=== PATIENT | male | born 1930 | race Caucasian/White ===

== ENCOUNTER 2018-05-20 13:51 | Observation (INO) | payer MEDICARE, MEDICAID ==
[2018-05-20] MEDS ORDERED: Acetaminophen TAB* 325 MG PO ONE (14:04)
--- NOTE | 2018-05-20 14:23 | ED ---
Adult Trauma - HPI Summary HPI Summary: Patient is an 87-year-old male with a history of hypertension presenting to the ED after a fall. is at bedside. states they were attempting to move a mattress, when he fell, falling onto his left shoulder and injuring his left hip and also with a head injury. Patient endorses pain to the L eyebrow with a small laceration. Also pain to the L elbow and L hip. Patient is s/p L hip replacement. Hx of dementia but states he appears at his baseline. He is A and O x 3 on arrival, joking and appears well. Denies SOB or CP. Patient was not ambulatory s/p fall as his called ambulance. He states he feels as though he could walk though. - History of Current Complaint Stated Complaint: FALL/HEAD INJURY Time Seen by Provider: 05/20/18 13:59 Hx Obtained From: Patient Mechanism of Injury: Fall Ambulatory at the Scene: Yes Loss of Consciousness: no loss of consciousness Onset of Pain: Minutes Onset Severity: Mild Current Severity: Mild Pain Scale Used: 0-10 Numeric Location: Extremities - left hip, left shoulder Character: Aching Aggravating Factor(s): Movement Alleviating Factor(s): Rest, Ice, Compression Associated Signs & Symptoms: Positive: Other: - demented at baseline. Negative : SOB, Chest Pain, Cough, Nausea/Vomiting, Loss of Consciousness, Memory Loss, Numbness/Weakness, Hoarseness - Additional Pertinent History Oxygen Devices Used Prior to Hospitalization: None Recent Stress Test: No Have you ever had this problem before: No - Allergy/Home Medications Allergies/Adverse Reactions: Allergies Allergy/AdvReac Type Severity Reaction Status Date / Time MS Rofecoxib [From Vioxx] Allergy Severe blood in Verified 08/29/12 11:31 stool seafood Allergy unknown Uncoded 08/29/12 11:31 reaction, PMH/Surg Hx/FS Hx/Imm Hx Previously Healthy: No - dementia but otherwise has been healthy Cardiovascular History: Reports: Hx Hypertension - WILL NOT TAKEN MEDICATION GI History: Reports: Hx Gastroesophageal Reflux Disease - ON MEDICATION STOPPED 08/21 History: Reports: Other Problems/Disorders - HEMATURIA WITH GROWTH IN BLADDER Sensory History: Reports: Hx Contacts or Glasses - GLASSES, Hx Glaucoma - RIGHT EYE Denies: Hx Hearing Aid Opthamlomology History: Reports: Hx Contacts or Glasses - GLASSES, Hx Glaucoma - RIGHT EYE Neurological History: Reports: Hx Dementia - alzheimers, Other Neuro Impairments /Disorders - ALZHEIMERS - Surgical History Surgery Procedure, Year, and Place: RIGHT HIP REPLACEMENT, [facility]. INCISION AND DRAINAGE RIGHT TESTICLE, OFFICE IN [place]. RIGHT VARICOSE VEIN SURGERY, [facility] Hx Anesthesia Reactions: No - Immunization History Hx Pertussis Vaccination: No Immunizations Up to Date: Yes Infectious Disease History: Denies: Traveled Outside the [place] in Last 30 Days - Social History Occupation: Unemployed Lives: With Family Hx Substance Use: No Substance Use Type: Reports: None Hx Tobacco Use: No Smoking Status (MU): Never Smoked Tobacco Review of Systems Constitutional: Negative Negative: Fever, Chills, Fatigue, Skin Diaphoresis Negative: Palpitations, Chest Pain Negative: Shortness Of Breath, Cough Negative: Abdominal Pain, Vomiting, Diarrhea, Nausea Genitourinary: Negative Positive: no symptoms reported, see HPI Positive: Arthralgia - left hip, left shoulder, Myalgia Positive: Other - hematoma to the L eyebrow Negative: Headache, Weakness, Paresthesia, Numbness, Syncope Psychological: Normal All Other Systems Reviewed And Are Negative: Yes Physical Exam Triage Information Reviewed: Yes Vital Signs Reviewed: Yes Appearance: Positive: No Pain Distress, Signs of Trauma Skin: Positive: Pale Head/Face: Positive: Cephalohematoma - left eyebrow Eyes: Positive: EOMI, TANYA, Conjunctiva Inflammed Neck: Positive: Supple, No Lymphadenopathy Respiratory/Lung Sounds: Positive: Clear to Auscultation, Breath Sounds Present Cardiovascular: Positive: Normal, RRR, Pulses are Symmetrical in both Upper and Lower Extremities Musculoskeletal: Positive: Pain @ - left hip on log roll only, Other - left shoulder - able to abduct and adduct without discomfort Neurological: Positive: Speech Normal Psychiatric: Positive: Affect/Mood Appropriate, Other - patient is demented at baseline - able to answer questions appropriately AVPU Assessment: Alert - Halie Coma Scale Best Eye Response: 4 - Spontaneous Best Motor Response: 6 - Obeys Commands Best Verbal Response: 5 - Oriented Coma Scale Total: 15 Diagnostics - Laboratory Result Diagrams: 05/20/18 14:39 05/20/18 14:39 Lab Statement: Any lab studies that have been ordered have been reviewed, and results considered in the medical decision making process. Adult Trauma Course/Dx - Course Course Of Treatment: On arrival into the ED, patient is noted to have trauma to the left eyebrow. There is a large hematoma with overlying laceration measuring 3 cm in length. He is also complaining of left shoulder pain. There is a large hematoma to the left shoulder, however patient is able to abduct and adduct at the shoulder. He is complaining of left hip pain. Patient is status post left hip replacement several years ago. He denies any SOB or CP. He was shown to be in A. fib on arrival, however a closer look revealed this was sinus arrhythmia. He was placed on the monitor and it showed continuous sinus rhythm without evidence of A. fib. On arrival to the ED, he was immediately sent to the CT brain which was read as: Left hip and pelvis x-ray shows: IMPRESSION: 1. STATUS POST RIGHT HIP ARTHROPLASTY. 2. OSTEOARTHRITIS. 3. OSTEOPENIA. 4. NO RADIOGRAPHIC EVIDENCE FOR HIP FRACTURE. X-RAYS MAY BE NEGATIVE WITH NONDISPLACED. HIP FRACTURE, IF THERE IS PERSISTENT CLINICAL CONCERN, RECOMMEND CONSIDERATION OF MRI. IN. THE SETTING OF CONTRAINDICATION TO MRI OR LIMITATION IN EMERGENT ACCESS TO MRI, CT WOULD. BE SUGGESTED. Chest x-ray shows: IMPRESSION: NO ACTIVE CARDIOPULMONARY DISEASE. Left shoulder x-ray shows: IMPRESSION: OSTEOPENIA. OSTEOARTHRITIS. NO ACUTE OSSEOUS INJURY. THE DEGREE OF OSTEOPENIA MAY MAKE A NONDISPLACED FRACTURE. RADIOGRAPHICALLY OCCULT. IF SYMPTOMS PERSIST, RECOMMEND REPEAT IMAGING. Patient is given Tylenol 650 mg PO for relief. Labs obtained: Hemoglobin 13.5, WBC 5.4, BUN 38, creatinine 1.18 troponin 0.00. EKG shows sinus bradycardia with a rate of 46. Log rolled patient and he c/o pain to the bilateral hips. This is worse to the L side. On this reevaluation, patient states he is feeling improved and would like to ambulate. He does ambulate and bears weight on both legs, although states he has pain to the bilateral hips (both to the lateral aspects). Upon ambulation, heart rate drops to 40 and patient appears to be vasovagal. We sit him down and BP is noted to be 79/55. Fluids with pressure bag 2 given and BP increases to 88/65 after 5 minutes. IMPRESSION: 1. OSTEOPENIA. 2. OSTEOARTHRITIS. 3. NO DISPLACED FRACTURE. 4. STATUS POST RIGHT HIP ARTHROPLASTY. 5. PERIVESICULAR HEMATOMA MEASURING UP TO 12 CM IN SIZE. PRELIMINARY FINDINGS WERE DISCUSSED WITH OSCAR DEUTSCH IN THE EMERGENCY DEPARTMENT AT. APPROXIMATELY 4:20 PM ON MAY 20, 2018.. Furhter re- examination reveals no tenderness suprapubically or to the R or L groin. Only pain noted to the L lateral hip on palpation. Discussed case with Dr. Kwong who agrees to admit for further workup. - Diagnoses Differential Diagnosis/HQI/PQRI: Positive: Contusion(s) Provider Diagnoses: Traumatic cephalohematoma, Left hip pain, Bradycardia, Abdominal hematoma Discharge - Sign-Out/Discharge Documenting (check all that apply): Patient Departure Patient Received Moderate/Deep Sedation with Procedure: No - Discharge Plan Condition: Fair Disposition: ADMITTED TO [facility] Patient Education Materials: Head Injury (ED) Referrals: Chuy Peter MD [Primary Care Provider] - Additional Instructions: antibiotic ointment to the area Return to the ED for any worsening symptoms - Billing Disposition and Condition Condition: FAIR Disposition: Admitted to [facility]
[2018-05-20 14:56] LABS: ABS Basophils 0 10^3/ul (0-0.2); ABS Eosinophils 0.1 10^3/ul (0-0.6); ABS Lymphocytes 0.9 10^3/ul (1.0-4.8); ABS Monocytes 0.5 10^3/ul (0-0.8); ABS Nucleated RBC 0 10^3/ul; Eosinophil % 1.1 %; Hematocrit 40 % (36-46); Hemoglobin 13.5 g/dL (14.0-18.0); Lymphocyte % 15.8 %; Mean Corpuscular HGB Conc 34 g/dL (31-36); Mean Corpuscular Hemoglobin 32 pg (27-31); Mean Corpuscular Volume 97 fL (80-94); Mean Platelet Volume 8.8 fL (7.4-10.4); Nucleated Red Blood Cells % 0.1; Platelet Count 184 10^3/uL (150-450); Red Blood Count 4.18 10^6 /uL (4.18-5.48); Red Cell Distribution Width 14 % (10.5-15); White Blood Count 5.4 10^3/uL (3.5-10.8)
[2018-05-20 15:20] LABS: Albumin 4.2 g/dL (3.2-5.2); Albumin/Globulin Ratio 1.4 (1-3); BUN/Creatinine Ratio 32.2 (8-20); Calcium 9.7 mg/dL (8.6-10.3); EGFR African American 70.3 (>60); EGFR Non-African American 58.1 (>60); Globulin 2.9 g/dL (2-4); Potassium 4.6 mmol/L (3.5-5.0); Total Bilirubin 0.6 mg/dL (0.2-1.0); Total Protein 7.1 g/dL (6.4-8.9)
[2018-05-20] MEDS ORDERED: NS 0.9% 1000 ML** 1,000 ML IV ONE (16:00)
[2018-05-20] MEDS ORDERED: Acetaminophen TAB* 325 MG PO PRN (16:57)
[2018-05-20] MEDS ORDERED: traMADol TAB* 50 MG PO PRN (16:58)
[2018-05-20 17:22] LABS: Hematocrit 22 % (36-46); Hemoglobin 7.4 g/dL (14.0-18.0); Mean Corpuscular HGB Conc 34 g/dL (31-36); Mean Corpuscular Hemoglobin 34 pg (27-31); Mean Corpuscular Volume 99 fL (80-94); Red Blood Count 2.19 10^6 /uL (4.18-5.48); Red Cell Distribution Width 14 % (10.5-15); White Blood Count 5.7 10^3/uL (3.5-10.8)
[2018-05-20 18:37] LABS: Mean Platelet Volume 8.8 fL (7.4-10.4); Platelet Count 95 10^3/uL (150-450)
[2018-05-20 18:47] LABS: Hematocrit 34 % (36-46); Hemoglobin 11.6 g/dL (14.0-18.0)
[2018-05-20] MEDS ORDERED: Iodixanol* (CONTRAST) 320 MG/ML 100 ML SDV IV ONE (19:11)
--- NOTE | 2018-05-20 19:16 | ED ---
Progress - Progress Note Progress Note: I supervised the care of the physician pediatric medical assistant and I performed a history and physical on this patient. Street: Fall with facial injury and discomfort in the hip. Near syncopal episode in the ER Physical exam: Alert, oriented with hematoma surrounding the left eye. Tender in the suprapubic area with a firm/density felt. Plan: Re-CT with IV contrast of the abdomen and pelvis to establish if the hematoma is enlarging and to evaluate for possible source of the bleeding. Patient signed out to oncoming ER physician pending results of the CT with contrast. Hemoglobin had dropped 6 g on second draw however this was drawn above an IV line. This was repeated and hemoglobin was now on 11.5 range, a much less significant drop. Patient is no longer hypotensive and is comfortable.. Course/Dx - Course Course Of Treatment: On arrival into the ED, patient is noted to have trauma to the left eyebrow. There is a large hematoma with overlying laceration measuring 3 cm in length. He is also complaining of left shoulder pain. There is a large hematoma to the left shoulder, however patient is able to abduct and adduct at the shoulder. He is complaining of left hip pain. Patient is status post left hip replacement several years ago. He denies any SOB or CP. He was shown to be in A. fib on arrival, however a closer look revealed this was sinus arrhythmia. He was placed on the monitor and it showed continuous sinus rhythm without evidence of A. fib. On arrival to the ED, he was immediately sent to the CT brain which was read as: Left hip and pelvis x-ray shows: IMPRESSION: 1. STATUS POST RIGHT HIP ARTHROPLASTY. 2. OSTEOARTHRITIS. 3. OSTEOPENIA. 4. NO RADIOGRAPHIC EVIDENCE FOR HIP FRACTURE. X-RAYS MAY BE NEGATIVE WITH NONDISPLACED. HIP FRACTURE, IF THERE IS PERSISTENT CLINICAL CONCERN, RECOMMEND CONSIDERATION OF MRI. IN. THE SETTING OF CONTRAINDICATION TO MRI OR LIMITATION IN EMERGENT ACCESS TO MRI, CT WOULD. BE SUGGESTED. Chest x-ray shows: IMPRESSION: NO ACTIVE CARDIOPULMONARY DISEASE. Left shoulder x-ray shows: IMPRESSION: OSTEOPENIA. OSTEOARTHRITIS. NO ACUTE OSSEOUS INJURY. THE DEGREE OF OSTEOPENIA MAY MAKE A NONDISPLACED FRACTURE. RADIOGRAPHICALLY OCCULT. IF SYMPTOMS PERSIST, RECOMMEND REPEAT IMAGING. Patient is given Tylenol 650 mg PO for relief. Labs obtained: Hemoglobin 13.5, WBC 5.4, BUN 38, creatinine 1.18 troponin 0.00. EKG shows sinus bradycardia with a rate of 46. Log rolled patient and he c/o pain to the bilateral hips. This is worse to the L side. On this reevaluation, patient states he is feeling improved and would like to ambulate. He does ambulate and bears weight on both legs, although states he has pain to the bilateral hips (both to the lateral aspects). Upon ambulation, heart rate drops to 40 and patient appears to be vasovagal. We sit him down and BP is noted to be 79/55. Fluids with pressure bag 2 given and BP increases to 88/65 after 5 minutes. IMPRESSION: 1. OSTEOPENIA. 2. OSTEOARTHRITIS. 3. NO DISPLACED FRACTURE. 4. STATUS POST RIGHT HIP ARTHROPLASTY. 5. PERIVESICULAR HEMATOMA MEASURING UP TO 12 CM IN SIZE. PRELIMINARY FINDINGS WERE DISCUSSED WITH OSCAR DEUTSCH IN THE EMERGENCY DEPARTMENT AT. APPROXIMATELY 4:20 PM ON MAY 20, 2018.. Furhter re- examination reveals no tenderness suprapubically or to the R or L groin. Only pain noted to the L lateral hip on palpation. Discussed case with Dr. Kwong who agrees to admit for further workup. - Diagnoses Provider Diagnoses: Traumatic cephalohematoma, Left hip pain, Bradycardia, Abdominal hematoma Discharge - Sign-Out/Discharge Documenting (check all that apply): Sign-Out Patient Signing out patient TO: Janie Lunsford - Discharge Plan Condition: Guarded Disposition: ADMITTED TO [facility] - Billing Disposition and Condition Condition: GUARDED Disposition: Admitted to [facility] - Attestation Statements Document Initiated by Jerry: No
--- NOTE | 2018-05-20 19:48 | ED ---
Progress - Progress Note Progress Note: Patient was signed out from Dr. Parker upon shift change pending CT results and disposition. DIAG CT abdomen and pelvis reveals, per radiologist, 1. No significant change in size of extraperitoneal hematoma of the ventral pelvis and lower abdomen which measures a maximum of 14.1 x 12.1 x 7.4 cm with no IV contrast extravasation/ active arterial bleeding. 2. Delayed imaging was only performed in the abdomen and not through the pelvis and therefore cannot evaluate for extraperitoneal urinary bladder rupture. 3. There is a small hiatal hernia. 4. There is colonic diverticulosis without evidence for acute diverticulitis. ED physician has reviewed this radiology report. Re-Evaluation - Re-Evaluation First Eval Re-Evaluation Time: 20:35 Change: Unchanged Comment: Batres catheter was placed. Urine was clear. Course/Dx - Course Course Of Treatment: On arrival into the ED, patient is noted to have trauma to the left eyebrow. There is a large hematoma with overlying laceration measuring 3 cm in length. On arrival to the ED, he was immediately sent to the CT brain which was read as: Left hip and pelvis x-ray shows: IMPRESSION: 1. STATUS POST RIGHT HIP ARTHROPLASTY. 2. OSTEOARTHRITIS. 3. OSTEOPENIA. 4. NO RADIOGRAPHIC EVIDENCE FOR HIP FRACTURE. X-RAYS MAY BE NEGATIVE WITH NONDISPLACED. HIP FRACTURE, IF THERE IS PERSISTENT CLINICAL CONCERN, RECOMMEND CONSIDERATION OF MRI. IN THE SETTING OF CONTRAINDICATION TO MRI OR LIMITATION IN EMERGENT ACCESS TO MRI, CT WOULD BE SUGGESTED. Chest x-ray shows: IMPRESSION : NO ACTIVE CARDIOPULMONARY DISEASE. Left shoulder x-ray shows: IMPRESSION: OSTEOPENIA. OSTEOARTHRITIS. NO ACUTE OSSEOUS INJURY. THE DEGREE OF OSTEOPENIA MAY MAKE A NONDISPLACED FRACTURE. RADIOGRAPHICALLY OCCULT. IF SYMPTOMS PERSIST , RECOMMEND REPEAT IMAGING. Patient is given Tylenol 650 mg PO for relief. Labs obtained: Hemoglobin 13.5, WBC 5.4, BUN 38, creatinine 1.18 troponin 0.00. EKG shows sinus bradycardia with a rate of 46. Log rolled patient and he c/o pain to the bilateral hips. This is worse to the L side. On this reevaluation, patient states he is feeling improved and would like to ambulate. He does ambulate and bears weight on both legs, although states he has pain to the bilateral hips (both to the lateral aspects). Upon ambulation, heart rate drops to 40 and patient appears to be vasovagal. We sit him down and BP is noted to be 79/55. Fluids with pressure bag 2 given and BP increases to 88/ 65 after 5 minutes. IMPRESSION: 1. OSTEOPENIA. 2. OSTEOARTHRITIS. 3. NO DISPLACED FRACTURE. 4. STATUS POST RIGHT HIP ARTHROPLASTY. 5. PERIVESICULAR HEMATOMA MEASURING UP TO 12 CM IN SIZE. PRELIMINARY FINDINGS WERE DISCUSSED WITH OSCAR DEUTSCH IN THE EMERGENCY DEPARTMENT AT. APPROXIMATELY 4:20 PM ON MAY 20, 2018.. Furhter re-examination reveals no tenderness suprapubically or to the R or L groin. Only pain noted to the L lateral hip on palpation. Patient was signed out from Dr. Parker upon shift change pending CT results and disposition. CT abdomen and pelvis reveals, per radiologist, 1. No significant change in size of extraperitoneal hematoma of the ventral pelvis and lower abdomen which measures a maximum of 14.1 x 12.1 x 7.4 cm with no IV contrast extravasation/active arterial bleeding. 2. Delayed imaging was only performed in the abdomen and not through the pelvis and therefore cannot evaluate for extraperitoneal urinary bladder rupture. 3. There is a small hiatal hernia. 4. There is colonic diverticulosis without evidence for acute diverticulitis. ED physician has reviewed this radiology report. Consult with Dr. Hill (hospitalist) at 2014. She requested that the patient receive a Batres catheter. She communicated if the urine is clear, we will admit the patient. Batres catheter was placed. Urine was clear. Patient will be admitted by Dr. Hill. Patient is agreeable with this plan. - Diagnoses Provider Diagnoses: Traumatic cephalohematoma, Left hip pain, Bradycardia, Abdominal hematoma - Provider Notifications Discussed Care Of Patient With: Sugey Hill Time Discussed With Above Provider: 20:15 Instructed by Provider To: Other - Consult with Dr. Hill (hospitalist) at 2014. She requested that the patient receive a Batres catheter. She communicated if the urine is clear, we will admit the patient. Discharge - Sign-Out/Discharge Documenting (check all that apply): Patient Departure - Admit to [facility], Receiving Sign-Out Receiving patient FROM: Oli Parker - Upon shift change pending CT results and disposition Patient Received Moderate/Deep Sedation with Procedure: No - Discharge Plan Condition: Guarded Disposition: ADMITTED TO [facility] - Attestation Statements Document Initiated by Scribe: Yes Documenting Scribe: Nuha Mancia Provider For Whom Scribe is Documenting (Include Credential): Dr. Janie Lunsford MD Scribe Attestation: I, Nuha Mancia, scribed for Dr. Janie Lunsford MD on 05/20/18 at 2035. Status of Scribe Document: Ready
[2018-05-20 20:44] LABS: Urine Appearance Clear; Urine Bilirubin Negative (Negative); Urine Blood Negative (Negative); Urine Color Yellow; Urine Glucose Negative (Negative); Urine Ketones 1+ (Negative); Urine Nitrite Negative (Negative); Urine Protein Negative (Negative); Urine Specific Gravity 1.038 (1.010-1.030); Urine Urobilinogen Negative (Negative)
--- NOTE | 2018-05-20 20:47 | HP ---
HISTORY AND PHYSICAL: DATE OF ADMISSION: 05/20/18 PRIMARY CARE PROVIDER: Dr. Chuy Peter. INSPECTOR EYEGLASS FRAMES: Patient's , Haylie Gamez. CODE STATUS: DNR. CHIEF COMPLAINT: Mechanical fall. SOURCE OF INFORMATION: HPI is obtained from family, review of records as the patient is a poor historian at baseline. HISTORY OF PRESENT ILLNESS: 87-year-old male with a past medical history of hypertension, Alzheimer dementia, gout, hyperlipidemia, and distant history of bladder cancer who presented to the emergency room after a mechanical fall. The patient and his were moving a mattress this morning, and when they were attempting to turn the mattress, the patient tripped on his left foot and came down landing on his left hip and then left shoulder and then ultimately did strike his head and had no loss of consciousness. He had immediate bruising and bleeding, and thus, they decided to present to the emergency room. In the emergency room, vital signs were initially stable, 110/51 with heart rates in the 60s and respiratory rates in the 20s, afebrile, and satting 96% on room air. The patient had labs done that showed hemoglobin of 13.5 and hematocrit of 40. CMP was done which was remarkable only for creatinine of 1.18. INR was 1. Imaging was done including a head CT which showed no acute intracranial pathology; a chest x-ray which showed no active cardiopulmonary disease; a hip and pelvis x-ray which showed status post right hip arthroplasty , osteoarthritis, osteopenia, and no radiographic evidence for hip fracture. A shoulder x-ray was done which showed no acute osseous injury, and finally, a pelvis CT was done as the patient continued to have complaint of pain which showed a perivesicular hematoma measuring 12 cm in size. Furthermore, over the course of his ER course, while the patient initially was doing well and actually was slated possibly even for discharge, he stood up and acutely vasovagal, then dropped his blood pressure to 80/50, became very pale, and had bradycardia into the 50s and needed to receive a 1 L bolus. Because the patient lives at home with his and because he was acutely decompensating with a syncopal event as well as had concern for a new hematoma, the hospitalist team was asked to evaluate the patient for further monitoring and admission to the hospital. PAST MEDICAL HISTORY: 1. Hypertension. 2. Alzheimer dementia, he is oriented to himself at baseline. 3. Hyperlipidemia. 4. Gout. 5. Distant history of bladder cancer. PAST SURGICAL HISTORY: He has a right total hip replacement, and otherwise, his family was unsure. MEDICATIONS: His medications are: 1. Naproxen 500 mg 1 tablet by mouth b.i.d. for pain. 2. Donepezil 10 mg q.h.s. 3. Latanoprost 1 drop both eyes nightly. 4. Cosopt 1 drop twice a day to right eye only. ALLERGIES: To crab, fish, gallops, and some NSAIDS including the COXIB class. FAMILY HISTORY: Noncontributory. SOCIAL HISTORY: He lives with his who is his primary resident care coordinator. Tobacco : he is a former smoker with a 8-pack year history. Alcohol:he is a non- alcohol user. Illicits:he is a no illicits user. REVIEW OF SYSTEMS: The patient is a poor historian at baseline and cannot fully complete a review of systems. He denies fevers, chills. Roughly, he denies any complaints of vision. He does endorse a headache. He denies chest pain. He denies shortness of breath. He denies nausea, vomiting, diarrhea. : He denies any dysuria. Musculoskeletal: He does admit left hip and right hip pain as well as left shoulder pain and does endorse new weakness. Skin: He has no complaints of rashes or new lesions. Neurologic: He denies no new numbness. Psychiatric: Denies depression or anxiety. Heme: He does complain of bruising which is on his left shoulder and left hip. PHYSICAL EXAMINATION GENERAL APPEARANCE: The patient is a pleasant man who is oriented to himself at baseline and repeating himself frequently, complaining in pain. VITAL SIGNS: At the time of physical exam are 110/51, heart rate of 60, respiratory rate of 22, saturating 99% on room air. HEENT: He is normocephalic. He does have a hematoma on his left brow extending to left eyelid, but sclerae are white and extraocular movements are intact. Pupils are equal and reactive. NECK: Supple with no cervical lymphadenopathy. RESPIRATORY: Clear to auscultation bilaterally. CARDIAC: He has regular rate and rhythm with no murmurs, rubs, or gallops. ABDOMEN: Belly is soft, nontender, and nondistended. MUSCULOSKELETAL: He moves all 4 extremities spontaneously. He has limited range of motion in bilateral hip flexion and extension secondary to pain. His left arm also has mild pain on painful arc testing, but otherwise no limitations on passive range of motion. NEUROLOGIC: Cranial nerves II through XII are intact with no focal deficits. Again, he is oriented to himself at baseline and often repeats himself. SKIN: He has diffuse hematoma on left shoulder anteriorly and posteriorly. He also has evidence of early left hematoma on left hip and flank. He also has evidence of hematoma on left eye. DIAGNOSTIC STUDIES/LAB DATA: CBC initially showed a white blood cell count of 5.4, hemoglobin of 13.5, hematocrit of 40, platelets of 184. A repeat CBC was done after a perivesicular hematoma was noted on pelvis CT which showed a hemoglobin of 7.4 and hematocrit of 22. CMP was done which showed sodium of 136, potassium 4.6, chloride 104, carbon dioxide 27, BUN 38, creatinine 1.18, glucose 101. AST 24, ALT 19, alk phos 66. His troponin is 0. Imaging: The pelvic CT showed a right perivesicular hematoma to 12 cm, but no evidence of pelvic fracture. A shoulder x-ray showed no acute osseous injury, and pelvis x-ray showed no acute osseous injury, but is status post right total hip replacement. Chest x-ray showed no active cardiopulmonary disease. A brain CT showed no acute intracranial pathology. An EKG was done which showed sinus bradycardia with no evidence of acute ischemia. Imaging and EKG reviewed by myself. ASSESSMENT AND PLAN: This is an 87-year-old male with dementia, hypertension, hyperlipidemia, and gout who presented to the emergency room status post a mechanical fall and emergency room course was complicated by syncopal event and persistent pelvic pain in the setting of new perivesicular hematoma 1. Internal Hematoma -The patient had a hemoglobin drop from 13.5 to 11 in 6 hours and a new 12 cm perivesicular hematoma. Curbside consult to ortho recommends if H/H continues to drift down may need angiogram. Will plan for expectant conservative management with serial H/H. 2. Status post mechanical fall. -He has no evidence of hip fracture but does have significant hematoma to left outer hip, right perivesicular, left shoulder, and left eye. -He is status post laceration management in the emergency room. -We will continue with pain control. 3. Hypertension. We will hold antihypertensives in the setting of syncopal event. 4. Vasovagal event. This is secondary to acute blood loss anemia and pain. We will continue to monitor the patient on tele overnight, has known sinus bradycardia at baseline. 5. Alzheimer dementia. The patient is oriented to himself at baseline and has advanced dementia. His declines he has behavioral problems, although if persistent could consider low dose Haldol as needed. We will continue donepezil as well for his Alzheimer's. 6. Cataracts. We will resume his eye drops after consulting with pharmacy. 7. Code status: He is DNR/DNI and has a well-documented health care proxy who is his . 8. DVT prophylaxis. We will keep the patient on SCDs for now given active acute blood loss anemia. TIME SPENT: Forty minutes was spent in the planning of this admission with more than half of that was spent at bedside of the patient giving direct patient care. He and his family have no further questions and agree to admission for further monitoring. [id number]/[facility] #: [id number] SOFY
[2018-05-20] MEDS: Latanoprost 0.005%* 2.5 ml BTL BOTH EYES SCH (23:50)
[2018-05-21 07:12] LABS: Hematocrit 30 % (36-46); Hemoglobin 10.5 g/dL (14.0-18.0); Mean Corpuscular HGB Conc 35 g/dL (31-36); Mean Corpuscular Hemoglobin 33 pg (27-31); Mean Corpuscular Volume 95 fL (80-94); Mean Platelet Volume 9.1 fL (7.4-10.4); Platelet Count 135 10^3/uL (150-450); Red Blood Count 3.19 10^6 /uL (4.18-5.48); Red Cell Distribution Width 14 % (10.5-15); White Blood Count 5.7 10^3/uL (3.5-10.8)
[2018-05-21 07:29] LABS: Calcium 8.7 mg/dL (8.6-10.3); Potassium 4.1 mmol/L (3.5-5.0)
[2018-05-21 07:34] LABS: BUN/Creatinine Ratio 31.4 (8-20); EGFR African American 83.2 (>60); EGFR Non-African American 68.8 (>60)
[2018-05-21] MEDS: Timolol 0.5% OPTH.SOL* BTL RIGHT EYE SCH ×2 (10:18→21:53)
[2018-05-21] MEDS: Donepezil TAB* 5 MG PO SCH (10:18)
[2018-05-21 10:45] LABS: ABS Basophils 0 10^3/ul (0-0.2); ABS Eosinophils 0.1 10^3/ul (0-0.6); ABS Lymphocytes 0.6 10^3/ul (1.0-4.8); ABS Monocytes 0.5 10^3/ul (0-0.8); ABS Neutrophils 4.4 10^3/ul (1.5-7.7); ABS Nucleated RBC 0 10^3/ul; Eosinophil % 0.9 %; Hematocrit 32 % (36-46); Hemoglobin 10.7 g/dL (14.0-18.0); Lymphocyte % 11.1 %; Mean Corpuscular HGB Conc 34 g/dL (31-36); Mean Corpuscular Hemoglobin 32 pg (27-31); Mean Corpuscular Volume 96 fL (80-94); Nucleated Red Blood Cells % 0; Platelet Count 144 10^3/uL (150-450); Red Blood Count 3.31 10^6 /uL (4.18-5.48); Red Cell Distribution Width 14 % (10.5-15); White Blood Count 5.6 10^3/uL (3.5-10.8)
--- NOTE | 2018-05-21 20:49 | PN ---
Subjective Interval History: Pt reports that he doesn't "think he could feel much better". Abdominal pain has significantly improved. Still not getting up to walk around. Objective Active Medications: Acetaminophen (Tylenol Tab*) 650 mg PO Q4H PRN PRN Reason: FEVER/PAIN Donepezil HCl (Aricept Tab*) 10 mg PO DAILY [facility] Last Admin: 05/21/18 10:18 Dose: 10 mg Latanoprost (Xalatan 0.005%*) 1 drop BOTH EYES BEDTIME [facility] Last Admin: 05/20/18 23:50 Dose: 1 drop Timolol Maleate (Timoptic 0.5% Opth*) 1 drop RIGHT EYE BID [facility] Last Admin: 05/21/18 10:18 Dose: 1 drop Tramadol HCl (Ultram*) 50 mg PO Q8H PRN PRN Reason: PAIN Vital Signs - 8 hr 05/21/18 05/21/18 05/21/18 15:15 19:16 19:54 Temperature 97.6 F 98.6 F Pulse Rate 69 68 Respiratory 16 16 18 Rate Blood Pressure 98/53 111/59 (mmHg) O2 Sat by Pulse 94 93 Oximetry Oxygen Devices in Use Now: None Appearance: comfortable appearing, alert, oriented to self and "hospital" Ears/Nose/Mouth/Throat: - - hematoma around L eye Abdominal: - - soft, nontender, nondistended Result Diagrams: 05/21/18 10:14 05/21/18 06:53 Assess/Plan/Problems-Billing Assessment: 87M with dementia, HTN, gout, presenting after mechanical fall, found with syncopal event in ER, hypotension, downtrending hemoglobin in context of new perivesicular hematoma. - Patient Problems (1) Pelvic hematoma in male Comment: Could be from pelvic fracture not seen on CT. Ortho recommending conservative management with H/H trend. Could need angiogram if hemoglobin continues to decrease. - follow h/h - continue pain control with tramadol prn (pt has been declining) (2) Hypertension Comment: holding losartan/HCTZ in setting of low BP, active bleed (3) Alzheimer disease Comment: cont donepezil (4) Fall Comment: Uses walker at baseline. -Pending PT eval (5) DNR (do not resuscitate)
[2018-05-21] MEDS: Latanoprost 0.005%* 2.5 ml BTL BOTH EYES SCH (21:53)
[2018-05-22 07:26] LABS: Hematocrit 32 % (36-46); Hemoglobin 11.1 g/dL (14.0-18.0); Mean Corpuscular HGB Conc 34 g/dL (31-36); Mean Corpuscular Hemoglobin 33 pg (27-31); Mean Corpuscular Volume 95 fL (80-94); Mean Platelet Volume 9.2 fL (7.4-10.4); Platelet Count 130 10^3/uL (150-450); Red Blood Count 3.42 10^6 /uL (4.18-5.48); Red Cell Distribution Width 14 % (10.5-15)
[2018-05-22 07:47] LABS: TSH (Thyroid Stimulating Horm) 2.62 mcIU/mL (0.34-5.60)
[2018-05-22] MEDS: Timolol 0.5% OPTH.SOL* BTL RIGHT EYE SCH ×2 (09:07→22:01)
[2018-05-22] MEDS: Donepezil TAB* 5 MG PO SCH (09:07)
[2018-05-22] MEDS ORDERED: Cyanocobalamin INJ * 1,000 MCG/ML VIAL 1 ML VIAL IM ONE (10:45)
[2018-05-22] MEDS: Cyanocobalamin TAB* 500 MCG PO SCH (13:51)
--- NOTE | 2018-05-22 13:59 | PN ---
Subjective Interval History: Pt again incredibly pleasant. Denies pain. Continues to ask why it feels like he 's been here before - continuously reminded that he has been admitted for a couple days, to which he replies "Really?! Oh, that must be why." Pending PT evaluation before discharge, given recent mechanical fall. Walks with walker at baseline. B12 noted to be low (checked given macrocytic anemia). Subq injection b12 given today. Objective Active Medications: Acetaminophen (Tylenol Tab*) 650 mg PO Q4H PRN PRN Reason: FEVER/PAIN Cyanocobalamin (Vitamin B12 Tab*) 1,000 mcg PO DAILY [facility] Last Admin: 05/22/18 13:51 Dose: 1,000 mcg Donepezil HCl (Aricept Tab*) 10 mg PO DAILY [facility] Last Admin: 05/22/18 09:07 Dose: 10 mg Latanoprost (Xalatan 0.005%*) 1 drop BOTH EYES BEDTIME [facility] Last Admin: 05/21/18 21:53 Dose: 1 drop Timolol Maleate (Timoptic 0.5% Opth*) 1 drop RIGHT EYE BID [facility] Last Admin: 05/22/18 09:07 Dose: 1 drop Tramadol HCl (Ultram*) 50 mg PO Q8H PRN PRN Reason: PAIN Vital Signs - 8 hr 05/22/18 05/22/18 05/22/18 07:49 08:00 11:28 Temperature 98.3 F 97.8 F Pulse Rate 65 58 Respiratory 18 18 18 Rate Blood Pressure 104/47 110/52 (mmHg) O2 Sat by Pulse 95 95 Oximetry Oxygen Devices in Use Now: None Appearance: well appearing, comfortable Eyes: - - eccymosis around L orbit Respiratory: Clear to Auscultation Cardiovascular: RRR Abdominal: - - soft, nontender, no guarding, nondistended Extremities: No Edema Result Diagrams: 05/22/18 06:48 05/21/18 06:53 Assess/Plan/Problems-Billing Assessment: 87M with dementia, HTN, gout, presenting after mechanical fall, found with syncopal event in ER, hypotension, downtrending hemoglobin in context of new perivesicular hematoma, now stable pending PT for discharge. - Patient Problems (1) Pelvic hematoma in male Comment: Ortho curbside recommending conservative management with H/H trend. Could need angiogram if hemoglobin continues to decrease. - follow h/h - continue pain control with tramadol prn (pt has been declining) (2) Hypertension Comment: holding losartan/HCTZ in setting of low BP, recent bleed (3) Alzheimer disease Comment: cont donepezil (4) B12 deficiency anemia Comment: s/p B12 injection 05/22 - start on high dose oral supplement - should get injections as outpatient (5) Fall Comment: Uses walker at baseline. -Pending PT eval (6) DNR (do not resuscitate)
--- NOTE | 2018-05-22 18:11 | DS ---
CC: Dr. Chuy Peter * DISCHARGE SUMMARY: DATE OF ADMISSION: 05/20/18 DATE OF DISCHARGE: 05/23/18 PRIMARY CARE PROVIDER: Dr. Chuy Peter. DISPOSITION: Home. CONDITION: Improved. PRIMARY DIAGNOSIS: Mechanical fall complicated by perivesicular hematoma. SECONDARY DIAGNOSES: 1. B12 deficiency. 2. Hypertension. PERTINENT STUDIES: Brain CT on 05/20/18 had no acute intracranial pathology. Left shoulder x-ray with osteopenia and osteoarthritis. CT of abdomen and pelvis shows extraperitoneal hematoma of the ventral pelvis and lower abdomen measuring 14.1 x 12.1 x 7.4 with no IV contrast extravasation/ active arterial bleeding. There is a small hiatal hernia. There is colonic diverticulosis without evidence for acute diverticulitis. No evidence of displaced fracture. Status post right hip arthroplasty. Vitamin B12 level 194 TSH of 2.6. HISTORY OF PRESENT ILLNESS: An 87-year-old man with a past medical history of hypertension, Alzheimer dementia, gout and distant history of bladder cancer, who presented to the emergency room after a mechanical fall while he and his were trying to move a mattress in their home. The patient tripped and fell on his left foot and left hip and then left shoulder and ultimately did strike his head, although he denies loss of consciousness. Given immediate bruising over skin, they decided to present to the emergency room. HOSPITAL COURSE: The patient was initially hemodynamically stable. His hemoglobin was 13.5 and it was noted that a pelvic CT done for fall on hip had shown a perivesicular hematoma up to 12 cm in size. While in the ER, the patient stood up and had an acute syncopal episode with blood pressure measuring 80/50. It was noted that he was pale with bradycardia to the 50s and thought likely he had a vasovagal episode. Ortho was curbsided regarding this intraabdominal hematoma and conservative management with serial hemoglobins was recommended. Given this and the fact that the patient lives alone at home with his , he was admitted for further monitoring. He did have a decrease in his hemoglobin from initial 13.5 to around 11, which stayed stable for over 36 hours by day of discharge. While initially reporting significant abdominal pain in the ER, by day of discharge, the patient had denied any abdominal pain and reported improvement in his appetite. Throughout admission, the patient remained off of his home blood pressure medications given low blood pressure in the ER and persistently low normal blood pressure while admitted to the hospital. It was also noted that his B12 was low, so he received an intramuscular injection of B12 on 05/22/18. He was evaluated by Physical Therapy on day of discharge, who deemed him safe to go home with walker with home physical therapy services. REVIEW OF SYSTEMS: On day of discharge, a 10-point review of systems was negative. DISCHARGE PLAN: The patient is to return home with . He will have his home health services reinstated with home physical therapy ordered. He should follow up with his PCP within 1 week for further CBC monitoring. reports he already has an appointment with his urologist on the Monday after discharge. He is to stop taking his home blood pressure medications and avoid medications with antiplatelet effects like aspirin and NSAIDs. He will have further B12 management by his primary care physician. MEDICATIONS ON DISCHARGE: 1. Vitamin B12 1000 mcg daily. 2. Donepezil 10 mg daily. 3. Timolol eye drops. 4. Latanoprost eye drops. 5. Triamcinolone cream. Return precautions were discussed with the patient and his . He is to resume regular diet and level of activity as tolerated. TIME SPENT: Approximately 60 minutes spent on discharge of this patient, more than half of which was spent with care coordination at bedside for interview and exam. [id number]/[facility] [place] #: [id number] SOFY
[2018-05-22] MEDS: Latanoprost 0.005%* 2.5 ml BTL BOTH EYES SCH (22:01)
[2018-05-23 07:18] LABS: Hematocrit 29 % (36-46); Mean Corpuscular HGB Conc 34 g/dL (31-36); Mean Corpuscular Hemoglobin 33 pg (27-31); Mean Corpuscular Volume 96 fL (80-94); Platelet Count 142 10^3/uL (150-450); Red Blood Count 3.07 10^6 /uL (4.18-5.48); Red Cell Distribution Width 14 % (10.5-15); White Blood Count 5.3 10^3/uL (3.5-10.8)
[2018-05-23 07:40] LABS: BUN/Creatinine Ratio 32.7 (8-20); Calcium 8.9 mg/dL (8.6-10.3); EGFR African American 78.7 (>60); EGFR Non-African American 65.1 (>60)
[2018-05-23] MEDS: Donepezil TAB* 5 MG PO SCH (08:32)
[2018-05-23] MEDS: Cyanocobalamin TAB* 500 MCG PO SCH (08:32)
[2018-05-23] MEDS: Timolol 0.5% OPTH.SOL* BTL RIGHT EYE SCH (08:33)
[2018-05-23 09:25] VITALS: BP 110/52
== END 2018-05-23 11:20 | disposition home or self-care (01) ==
LOC: ED 13:51 → MEDTELE 16:55 → MED 21:21
PROVIDERS: ADMIT Internal Medicine; ATTEND Internal Medicine
DX: S30.1XXA Contusion of abdominal wall, initial encounter (principal); S30.0XXA Contusion of lower back and pelvis, initial encounter; D51.9 Vitamin B12 deficiency anemia, unspecified; M25.552 Pain in left hip; R00.1 Bradycardia, unspecified; W19.XXXA Unspecified fall, initial encounter; Y92.9 Unspecified place or not applicable; I10 Essential (primary) hypertension; G30.9 Alzheimer's disease, unspecified; Z85.51 Personal history of malignant neoplasm of bladder
CPT/HCPCS: 36415; 70450; 71045; 72192; 74177; 80048; 80053; 81003; 82607; 83921; 84443; 84484; 85014; 85018; 85025; 85027; 85610; 93005; 96372; 99285; A9270-GY; G0378; G8978-GP-CJ; G8979-GP-CI; J3420; Q9967

== ENCOUNTER 2018-05-24 16:10 | Emergency (ER) | payer MEDICARE, MEDICAID ==
--- NOTE | 2018-05-24 16:50 | ED ---
Complex/Multi-Sys Presentation - HPI Summary HPI Summary: Patient is an 87 y/o male brought in by EMS who presents to the ED s/p fall. He was here on 05/20/18 after a fall and was diagnosed with cephalohematoma, bradycardia, left hip pain, and abdominal hematoma. A brain CT, CXR, hip/pelvis XR, and shoulder XR were all negative. Patient was admitted to [facility] for 3 days. He was instructed to stop taking his HTN medications and Naproxen. As per , she feels it is not safe for the patient to be at home right now. He lives at home with his , and she has difficulty with transitioning the patient. Patient called EMS for possible admission to [facility] and rehabilitation. states the patient has a home health nurse and aide currently. denies any new fall or head injury. Patient c/o generalized weakness, left shoulder pain, and a pruritic rash on his left flank. also states patient seems more confused recently. Patient denies any abdominal pain, dysuria, or hematuria. Patient is a DNR. PMHx Alzheimers, HTN, HLD. - History Of Current Complaint Chief Complaint: EDPsychosocial Time Seen by Provider: 05/24/18 16:28 Hx Obtained From: Patient, Family/Supervisor [employer] Processing - Onset/Duration: Gradual Onset, Lasting Days - 4, Still Present Timing: Constant Aggravating Factor(s): Nothing Alleviating Factor(s): Nothing Associated Signs And Symptoms: Positive: Confusion. Negative: Abdominal Pain Related History: Recent Hospitalization - here 05/20/18-05/22/18 for fall - Allergies/Home Medications Allergies/Adverse Reactions: Allergies Allergy/AdvReac Type Severity Reaction Status Date / Time crab Allergy Unknown Verified 05/20/18 17:07 Reaction Details Fish Containing Products Allergy Unknown Verified 05/20/18 17:07 Reaction Details fish derived Allergy Unknown Verified 05/20/18 17:07 Reaction Details rofecoxib Allergy See Comment Verified 05/20/18 17:08 scallops Allergy Unknown Verified 05/20/18 17:07 Reaction Details shellfish derived Allergy Unknown Verified 05/20/18 17:08 Reaction Details shrimp Allergy Unknown Verified 05/20/18 17:07 Reaction Details seafood Allergy unknown Uncoded 08/29/12 11:31 reaction, PMH/Surg Hx/FS Hx/Imm Hx Cardiovascular History: Reports: Hx Hypercholesterolemia, Hx Hypertension - WILL NOT TAKEN MEDICATION GI History: Reports: Hx Gastroesophageal Reflux Disease - ON MEDICATION STOPPED 08/21 History: Reports: Other Problems/Disorders - HEMATURIA WITH GROWTH IN BLADDER Musculoskeletal History: Reports: Hx Gout Sensory History: Reports: Hx Contacts or Glasses - GLASSES, Hx Glaucoma - RIGHT EYE Denies: Hx Hearing Aid Opthamlomology History: Reports: Hx Contacts or Glasses - GLASSES, Hx Glaucoma - RIGHT EYE Neurological History: Reports: Hx Dementia - alzheimers - Cancer History Cancer Type, Location and Year: bladder - Surgical History Surgery Procedure, Year, and Place: RIGHT HIP REPLACEMENT, [facility]. INCISION AND DRAINAGE RIGHT TESTICLE, OFFICE IN [place]. RIGHT VARICOSE VEIN SURGERY, [facility] Hx Anesthesia Reactions: No Infectious Disease History: No Infectious Disease History: Denies: Traveled Outside the [place] in Last 30 Days - Family History Known Family History: Positive: Diabetes - Social History Alcohol Use: None Hx Substance Use: No Substance Use Type: Reports: None Hx Tobacco Use: No Smoking Status (MU): Never Smoked Tobacco Review of Systems Negative: Abdominal Pain Negative: dysuria, hematuria Positive: Arthralgia - left shoulder Positive: Rash - pruritic left flank, Bruising - hematoma to left eye, Other - laceration left eyebrow Neurological: Other - confusion Positive: Weakness - generalized All Other Systems Reviewed And Are Negative: Yes Physical Exam - Summary Physical Exam Summary: Appearance: Well appearing, no pain distress Skin: warm, dry, reflects adequate perfusion, healing laceration on left brow, periorbital ecchymosis around left eye, erythema on left flank Head/face: normal Eyes: EOMI, TANYA ENT: mucous membranes moist Neck: supple, non-tender Respiratory: CTA, breath sounds present Cardiovascular: RRR, pulses symmetrical, soft systolic murmur Abdomen: non-tender, soft Bowel Sounds: present Musculoskeletal: normal, strength/ROM intact, normal gait assisted by walker Neuro: normal, sensory motor intact, alert and oriented to person only Triage Information Reviewed: Yes Vital Signs On Initial Exam: Initial Vitals Temp Pulse Resp BP Pulse Ox 97.5 F 56 16 164/83 98 05/24/18 16:11 05/24/18 16:11 05/24/18 16:11 05/24/18 16:11 05/24/18 16:11 Vital Signs Reviewed: Yes Diagnostics - Vital Signs Vital Signs Temp Pulse Resp BP Pulse Ox 05/24/18 16:11 97.5 F 56 16 164/83 98 - Laboratory Lab Statement: Any lab studies that have been ordered have been reviewed, and results considered in the medical decision making process. - Radiology Humerus XR Radiology Interpretation Completed By: Radiologist Summary of Radiographic Findings: Negative for LEFT humerus fracture. ED physician reviewed radiology report. Complex Multi-Symp Course/Dx Course Of Treatment: Nurse's notes reviewed. The patient is known to me from previous ER visit where he was hospitalized just a few days ago. He has no abdominal tenderness from the hematoma. His has concerns over caring for him at home. However, she has at home nursing care and home health aide. The patient was up and walking at baseline using his wheeled walker without assistance. He transfers normally. He was found to be not a rehabilitation candidate wall in the hospital. I have placed a consult to the social media sr strategy manager who is not available at this hour to assist them tomorrow. Patient's will discuss with the home health agency regarding increasing his hours with the aid and will discuss with the primary care physician about memory care placement. - Diagnoses Provider Diagnoses: Dementia, History of fall Discharge - Sign-Out/Discharge Documenting (check all that apply): Patient Departure - Discharge Patient Received Moderate/Deep Sedation with Procedure: No - Discharge Plan Condition: Improved Disposition: HOME Patient Education Materials: Alzheimer Disease (DC), Fall Prevention for Older Adults (ED) Referrals: Chuy Peter MD [Primary Care Provider] - Additional Instructions: Call his doctor first thing in the morning to schedule prompt follow-up. They can assist with placement in dementia care facility. Also call caregivers of Judith and see if you can have additional resources for 8 help in your home. Return if worse, new falls or other concerns. - Billing Disposition and Condition Condition: IMPROVED Disposition: Home - Attestation Statements Document Initiated by Scribe: Yes Documenting Scribe: Anna Jenkins Provider For Whom Jerry is Documenting (Include Credential): Oli Parker MD Scribe Attestation: Anna Perales scribed for Oli Parker MD on 05/24/18 at 2106. Scribe Documentation Reviewed: Yes Provider Attestation: The documentation as recorded by the scribe, Anna Azari accurately reflects the service I personally performed and the decisions made by me, Oli Parker MD Status of Scribe Document: Viewed
[2018-05-24] MEDS ORDERED: Famotidine TAB* 20 MG PO ONE (16:59)
[2018-05-24 18:08] VITALS: BP 143/69
== END 2018-05-24 18:02 | disposition home or self-care (01) ==
LOC: ED 16:10
DX: I10 Essential (primary) hypertension (principal); R10.84 Generalized abdominal pain; R21 Rash and other nonspecific skin eruption; F03.90 Unspecified dementia, unspecified severity, without behavioral disturbance, psychotic disturbance, mood disturbance, and anxiety; Z91.81 History of falling
CPT/HCPCS: 99282; A9270-GY